=== PATIENT | male | born 1965 | race Caucasian/White ===

== ENCOUNTER 2022-02-22 14:41 | Outpatient (REF) | payer OTHER, SELFPAY ==
[2022-02-22 15:31] LABS: Hematocrit 51.1 % (42.0-52.0); Hemoglobin 16.5 g/dl (14.0-18.0); Mean Corpuscular HGB Conc 32.3 g/dl (31.0-36.0); Mean Corpuscular Hemoglobin 31.6 pg (27.0-33.0); Mean Corpuscular Volume 97.9 fL (80.0-98.0); Mean Platelet Volume 10.3 fL (9.4-12.4); Platelet Count 355 X10*3/uL (160-400); Red Blood Count 5.22 X10*6/uL (4.60-5.80); Red Cell Distribution Width 15.1 % (11.0-16.0); White Blood Count 12.5 X10*3/uL (4.8-10.8)
[2022-02-22 15:45] LABS: Estimated Average Glucose 111 mg/dL; Hemoglobin A1c % 5.5 %
[2022-02-22 15:54] LABS: Alanine Aminotransferase 22 U/L (0-40); Alkaline Phosphatase 60 U/L (39-117); Anion Gap 17 (12-20); Aspartate Amino Transferase 18 U/L (5-37); Bilirubin Direct 0.2 mg/dL (0.0-0.5); Bilirubin Total 0.6 mg/dL (0.0-1.0); Blood Urea Nitrogen 10 mg/dL (9-16); Calcium 9.7 mg/dL (8.4-10.2); Carbon Dioxide 29 mmol/L (22-29); Chloride 100 mmol/L (96-108); Estimated Glomerular Filt Rate > 60; Glucose Random 105 mg/dL (60-115); Potassium 4.4 mmol/L (3.3-5.1); Sodium 142 mmol/L (135-145)
[2022-02-22 16:35] LABS: Creatinine Urine 153.01 mg/dL
== END 2022-02-22 14:42 | disposition home or self-care (01) ==
LOC: HO.LAB 14:41
PROVIDERS: Visit Provider Internal Medicine
DX: K52.9 Noninfective gastroenteritis and colitis, unspecified (principal); E88.81 Metabolic syndrome and other insulin resistance; R23.2 Flushing
CPT/HCPCS: 80048; 82247; 82248; 83003; 83036; 83520; 84075; 84450; 84460; 85027; 86003; 86008

== ENCOUNTER 2022-03-01 14:25 | Outpatient (REF) | payer OTHER, SELFPAY ==
[2022-03-05 20:56] LABS: CATF, 24 Ur Volume 1775 mL; Catecholamines,Tot. (E+NE) 24U 69 mcg/24 h (26-121); Dopamine, 24 Ur 254 mcg/24 h (52-480); Norepinephrine, 24 Ur 69 mcg/24 h (15-100)
[2022-03-07 08:46] LABS: Metanephrine, Free 24U 206 mcg/24 h (90-315); Normetanephrine, Free 24U 498 mcg/24 h (122-676); Total Metanephrine, Free 24U 704 mcg/24 h (224-832); Total Volume 24U 1775 mL
== END 2022-03-01 14:26 | disposition home or self-care (01) ==
LOC: HO.LNP 14:25
PROVIDERS: Visit Provider Internal Medicine
DX: R23.2 Flushing (principal)
CPT/HCPCS: 82384; 83835

== ENCOUNTER 2022-03-22 15:49 | Outpatient (REF) | payer OTHER, SELFPAY | END 2022-03-22 15:50 | disposition home or self-care (01) | LOC: HO.CT 15:49 | PROVIDERS: Visit Provider Internal Medicine | DX: Z13.89 Encounter for screening for other disorder (principal) ==

== ENCOUNTER 2022-04-19 14:50 | Outpatient (REF) | payer OTHER, SELFPAY ==
--- NOTE | ~2022-04-19 | CT_ITS ---
EXAMINATION: CT CHEST WITH CONTRAST CLINICAL INFORMATION: Flushing. Right upper quadrant pain. COMPARISON: None TECHNIQUE: Multidetector volumetric CT imaging of the chest was obtained after the administration of 85 mL of Omnipaque 350 intravenous contrast without immediate adverse reactions. Axial MIP volume rendering provided. Sagittal and coronal reformatted images were obtained. This CT examination was performed using dose optimization techniques as appropriate, variously including the following: *Automated exposure control *Adjustment of mA and/or kV according to patient size (this includes techniques or standardized protocols for targeted exams where dose is matched to indication/reason for exam; i.e. extremities or head) *Use of iterative reconstruction technique DLP: 239 mGy-cm FINDINGS: [employer]: Unremarkable LUNGS: 2 mm calcified right middle lobe nodule axial image 329 series 5. 2 mm calcified right middle lobe nodule axial image 351 series 5. 1 mm calcified right lower lobe nodule axial image 356 series 5. The lungs are otherwise clear. MEDIASTINUM: The mediastinum is normal. PLEURA: There is no pleural effusion. No pleural mass or thickening. AXILLA: No lymphadenopathy. UPPER ABDOMEN: There may be mild fatty infiltration of the liver. There is wall thickening of the proximal stomach. OSSEOUS STRUCTURES: Unremarkable. CT/CT chest w IV con IMPRESSION: Small calcified right middle lobe nodules probably representing calcified granulomas. According to the UPDATED 2017 Fleischner Society recommendations, the advised follow-up imaging for less than 6 mm solid nodule: Low risk, no chest CT follow-up and high risk, optional chest CT follow-up in one year. Fleischner guidelines were followed.
--- NOTE | ~2022-04-19 | CT_ITS ---
EXAMINATION: CT ABDOMEN AND PELVIS WITHOUT AND WITH CONTRAST CLINICAL INFORMATION: Right upper quadrant pain and flushing. COMPARISON: None TECHNIQUE: Multidetector volumetric imaging was performed of the abdomen and pelvis before and after the IV administration of 85 mL of Omnipaque 350 intravenous contrast. Sagittal and coronal reformatted images were obtained on the technologist's workstation. This CT examination was performed using dose optimization techniques as appropriate, variously including the following: *Automated exposure control *Adjustment of mA and/or kV according to patient size (this includes techniques or standardized protocols for targeted exams where dose is matched to indication/reason for exam; i.e. extremities or head) *Use of iterative reconstruction technique DLP: 239 mGy-cm FINDINGS: LUNG BASES: The visualized lung bases are unremarkable. LIVER, GALLBLADDER, AND BILIARY TREE: The liver is normal in shape. The liver is slightly enlarged, right lobe measuring 20 cm. The liver is slightly low in attenuation questionable for mild fatty infiltration. No focal liver lesion. Normal gallbladder. No biliary duct dilatation. PANCREAS: Unremarkable. SPLEEN: Unremarkable. ADRENAL GLANDS: Unremarkable. KIDNEYS AND URETERS: There are multiple bilateral low-attenuation renal lesions suggestive of cysts. Largest cysts measure 1.5 cm in the upper pole of the right kidney and 2 cm in the lower pole of the left kidney. Possible polycystic kidney disease should be considered. No hydronephrosis. No stone. BLADDER: Unremarkable. GASTROINTESTINAL TRACT: There is wall thickening of the proximal stomach. The small and large bowel is normal. The appendix is normal. ABDOMINAL WALL: Left inguinal hernia containing fat. Left rectus femoris fatty lesion probably representing a lipoma. LYMPH NODES: Small retroperitoneal lymph nodes. No enlarged lymph nodes. VASCULAR: Mild atherosclerotic disease. No aneurysm. PELVIC VISCERA: The prostate gland is slightly enlarged measuring 4.2 x 5.3 cm in AP and transverse dimension. OSSEOUS STRUCTURES: Degenerative changes of the spine. CT/CT abdomen pelvis wo/w IV con IMPRESSION: Wall thickening of the proximal stomach. Correlation with endoscopy and biopsy should be considered. Innumerable bilateral renal cysts. Polycystic kidney disease should be considered. Slightly enlarged fatty liver. Fleischner guidelines were followed.
[2022-04-19] MEDS: iohexoL 350 MG/ML 100 ML INFUS..BTL 85 ML IV (16:18)
== END 2022-04-19 14:51 | disposition home or self-care (01) ==
LOC: HO.CT 14:50
PROVIDERS: Visit Provider Internal Medicine
DX: R23.2 Flushing (principal); K52.9 Noninfective gastroenteritis and colitis, unspecified; R10.11 Right upper quadrant pain
CPT/HCPCS: 71260; 74178; Q9967